=== PATIENT | male | born 1935 | race Caucasian/White ===

== ENCOUNTER 2017-02-19 12:34 | Inpatient (IN) | payer MEDICARE, BC ==
[~2017-02-19 12:34] MED LIST: ACIPHEX20 MG; ALTACE10 MG; AMARYL2 M1 PO; AMOXICILLIN500 M1 PO; ANTIVERT25 MG PO; ASPIR-LOW81 M1 PO; BABY ASPIRIN81 MG; BETAPACE80 M2 PO; BYSTOLIC10 MG; COUMADIN2.5 MG; COUMADIN5 M2 PO; COUMADIN5 MG; FEROSUL325 M1 PO; FISH OIL 11000 MG/CA PO; GLIMEPIRIDE2 M1 PO; GLUCOPHAGE XR500 MG PO; LASIX40 M1 PO; LEVOTHROID112 MCG PO; LEVOTHROID50 MCG PO; LOPRESSOR25 MG/TA2 PO; LYRICA75 MG; LYRICA75 MG/CAP PO; NIACIN PO; NIASPAN1000 MG; PROTONIX40 M2 PO; RAMIPRIL5 M1 PO; SOTALOL120 M1 PO; SYNTHROID88 MC1 PO; TORSEMIDE10 M3 PO; TRIPLE ANTIB28.35 GM TOP; TYLENOL PM EX-1 EAC4 PO; ULTRAM ER100 MG; VITAMIN D2000 UNI1 PO; ZOFRAN4 MG PO
[2017-02-19] MEDS ORDERED: XARELTO15 M1 PO (12:52)
[2017-02-19] MEDS ORDERED: SPIRIVA RESPIMAT4 G1 INH (12:55)
[2017-02-19] MEDS ORDERED: MAGNESIUM OXID400 M1 PO (13:06)
[2017-02-19] MEDS ORDERED: VITAMIN E400 UNI4 PO (13:06)
[2017-02-19 16:39] LABS: ANION GAP 13 mmol/L (0-20); BLOOD UREA NITROGEN 44 mg/dl (6-24); CALCIUM 8.7 mg/dl (8.5-10.5); CARBON DIOXIDE-VENOUS 27 mmol/L (22-32); CHLORIDE 107 mmol/l (96-110); CREATININE 2.04 mg/dl (0.60-1.30); GLUCOSE 110 mg/dL (70-110); SODIUM 143 mmol/L (135-145); eGFR VALUE FOR BLACK 35 mL/Min
[2017-02-20 10:48] LABS: WHITE BLOOD COUNT 4.3 tho/cmm (4.0-10.0)
[2017-02-20 12:10] LABS: PLATELET COUNT 51 tho/cmm (150-450)
[2017-02-21 04:26] LABS: BASO % 0.2 % (0-2); EOS % 4.5 % (0-7); EOSINOPHIL ABSOLUTE COUNT 0.2 tho/cmm (0.0-0.7); HGB-HEMOGLOBIN 7.9 gm/dl (13.5-17.0); IMMATURE GRANULOCYTES ABSOLUTE 0.01 tho/cmm (0-0.03); IMMATURE GRANULOCYTES PERCENT 0.2 % (0-0.3); LYMPH % 27.8 % (20-45); LYMPH ABSOLUTE COUNT 1.2 tho/cmm (0.8-4.5); MCH (MEAN CORPUSCULAR HGB) 31.3 pg (28.0-32.0); MCHC MEAN CORPUSCULAR HGB CONC 32.9 % (32.0-36.0); MCV (MEAN CELL VOLUME) 95.2 fl (82.0-96.0); MEAN PLATELET VOLUME 10.5 cmc (9.4-12.4); MONOCYTE ABSOLUTE COUNT 0.4 tho/cmm (0.0-1.2); NEUTROPHIL ABSOLUTE COUNT 2.4 tho/cmm (1.6-8.0); NEUTROPHIL-AUTOMATED 2.4 tho/cmm (1.6-8.0); NEUTROPHILS % 57.3 % (40-80); RED BLOOD COUNT 2.52 mil/cmm (4.40-5.70); RED CELL DISTRIBUTION WIDTH 17.4 % (12.4-16.4); WHITE BLOOD COUNT 4.2 tho/cmm (4.0-10.0)
[2017-02-21 04:46] LABS: PLATELET COUNT 45 tho/cmm (150-450)
[2017-02-22 04:49] LABS: BASO % 0.2 % (0-2); EOS % 3.6 % (0-7); EOSINOPHIL ABSOLUTE COUNT 0.2 tho/cmm (0.0-0.7); HGB-HEMOGLOBIN 7.1 gm/dl (13.5-17.0); IMMATURE GRANULOCYTES ABSOLUTE 0.01 tho/cmm (0-0.03); IMMATURE GRANULOCYTES PERCENT 0.2 % (0-0.3); LYMPH % 21.3 % (20-45); LYMPH ABSOLUTE COUNT 1.1 tho/cmm (0.8-4.5); MCH (MEAN CORPUSCULAR HGB) 31.3 pg (28.0-32.0); MCV (MEAN CELL VOLUME) 95.2 fl (82.0-96.0); MEAN PLATELET VOLUME 10.4 cmc (9.4-12.4); MONO % 11.4 % (0-12); MONOCYTE ABSOLUTE COUNT 0.6 tho/cmm (0.0-1.2); NEUTROPHIL ABSOLUTE COUNT 3.2 tho/cmm (1.6-8.0); NEUTROPHIL-AUTOMATED 3.2 tho/cmm (1.6-8.0); NEUTROPHILS % 63.3 % (40-80); RED BLOOD COUNT 2.27 mil/cmm (4.40-5.70); RED CELL DISTRIBUTION WIDTH 16.9 % (12.4-16.4); WHITE BLOOD COUNT 5.1 tho/cmm (4.0-10.0)
[2017-02-22 05:12] LABS: HCT-HEMATOCRIT 21.6 % (36.0-53.5); MCHC MEAN CORPUSCULAR HGB CONC 32.9 % (32.0-36.0); PLATELET COUNT 39 tho/cmm (150-450)
[2017-02-22 22:08] LABS: HGB-HEMOGLOBIN 9.4 gm/dl (13.5-17.0)
[2017-02-23 05:44] LABS: BASO % 0.2 % (0-2); EOS % 2.9 % (0-7); EOSINOPHIL ABSOLUTE COUNT 0.1 tho/cmm (0.0-0.7); HCT-HEMATOCRIT 26.7 % (36.0-53.5); HGB-HEMOGLOBIN 8.9 gm/dl (13.5-17.0); IMMATURE GRANULOCYTES ABSOLUTE 0.02 tho/cmm (0-0.03); IMMATURE GRANULOCYTES PERCENT 0.4 % (0-0.3); LYMPH % 16.3 % (20-45); LYMPH ABSOLUTE COUNT 0.8 tho/cmm (0.8-4.5); MCH (MEAN CORPUSCULAR HGB) 30.6 pg (28.0-32.0); MCHC MEAN CORPUSCULAR HGB CONC 33.3 % (32.0-36.0); MCV (MEAN CELL VOLUME) 91.8 fl (82.0-96.0); MEAN PLATELET VOLUME 10.4 cmc (9.4-12.4); MONO % 12.5 % (0-12); MONOCYTE ABSOLUTE COUNT 0.6 tho/cmm (0.0-1.2); NEUTROPHIL ABSOLUTE COUNT 3.2 tho/cmm (1.6-8.0); NEUTROPHIL-AUTOMATED 3.2 tho/cmm (1.6-8.0); NEUTROPHILS % 67.7 % (40-80); PLATELET COUNT 53 tho/cmm (150-450); RED BLOOD COUNT 2.91 mil/cmm (4.40-5.70); WHITE BLOOD COUNT 4.8 tho/cmm (4.0-10.0)
[2017-02-23 05:53] LABS: ANION GAP 11 mmol/L (0-20); BLOOD UREA NITROGEN 38 mg/dl (6-24); CALCIUM 8.8 mg/dl (8.5-10.5); CARBON DIOXIDE-VENOUS 27 mmol/L (22-32); CHLORIDE 106 mmol/l (96-110); CREATININE 1.76 mg/dl (0.60-1.30); GLUCOSE 145 mg/dL (70-110); POTASSIUM 4.3 mmol/L (3.7-5.1); SODIUM 140 mmol/L (135-145); eGFR VALUE FOR BLACK 42 mL/Min
[2017-02-23 13:43] LABS: MCV (MEAN CELL VOLUME) 92.8 fl (82.0-96.0)
== END 2017-02-23 16:00 | DRG 378 ==
LOC: 5WF 12:34
PROVIDERS: Internal Medicine; ADMIT Hospitalist
PROC: 0W3P8ZZ Control Bleeding in Gastrointestinal Tract, Via Natural or Artificial Opening Endoscopic (ICD-10-PCS; principal; 2017-02-19)
DX: K92.1 Melena (principal); D62 Acute posthemorrhagic anemia; D69.6 Thrombocytopenia, unspecified; K76.0 Fatty (change of) liver, not elsewhere classified; K25.0 Acute gastric ulcer with hemorrhage; J44.9 Chronic obstructive pulmonary disease, unspecified; E03.9 Hypothyroidism, unspecified; K21.9 Gastro-esophageal reflux disease without esophagitis; I48.0 Paroxysmal atrial fibrillation; I25.10 Atherosclerotic heart disease of native coronary artery without angina pectoris; E11.9 Type 2 diabetes mellitus without complications
CPT/HCPCS: C9113; J1815; J1940; J7030; P9016; P9031; P9033